=== PATIENT | female | born 1945 | race African-American/Black ===

== ENCOUNTER 2020-02-27 01:28 | Emergency (ER) | payer OTHER, MEDICAID ==
[~2020-02-27] VITALS: Ht 165.1 cm; Wt 63.0 kg
[~2020-02-27 01:28] MED LIST: ALPR0.5T PO; AMLO10TA80 PO; AMLODIPINE; ASPI-1160 PO; Benazepril; PROMETHAZINE
[2020-02-27 03:27] LABS: EOSINOPHILS % 0.4 % (0.0-5.0); HEMATOCRIT. 39.5 % (36.0-48.0); HEMOGLOBIN. 13.4 g/dL (12.0-16.0); LYMPHOCYTES % 17.1 % (20.0-50.0); MEAN CORPUSCULAR HEMOGLOBIN 33.3 pg (28.0-32.0); MEAN CORPUSCULAR VOLUME 97.9 fL (81.0-99.0); MEAN PLATELET VOLUME 8.4 fl (7.4-10.4); MONOCYTES % 9.2 % (2.0-8.0); NEUTROPHILS % 72.3 % (40.0-76.0); PLATELET 254 x1000/uL (130-400); RED BLOOD CELL COUNT 4.03 mill/uL (4.2-5.4); RED CELL DISTRIBUTION WIDTH 13.2 % (11.6-14.6)
[2020-02-27 03:32] LABS: CHLORIDE 99 mEq/L (98-107)
[2020-02-27 03:35] LABS: ETHANOL BLOOD < 10 mg/dL
[2020-02-27 04:04] LABS: CLARITY URINE CLEAR (CLEAR); COLOR URINE YELLOW (YELLOW); KETONES URINE NEGATIVE (NEGATIVE); LEUKOCYTE ESTERASE URINE 1+ (NEGATIVE); NITRITE URINE NEGATIVE (NEGATIVE); OCCULT BLOOD URINE NEGATIVE (NEGATIVE); PH URINE 5.5 (4.5-8.0); PROTEIN URINE TRACE (NEGATIVE); SPECIFIC GRAVITY URINE 1.013 (1.005-1.030)
[2020-02-27] MEDS ORDERED: CEFTRIAXONE 1 G PREMIX 50 ML IV ONE (04:45)
[2020-02-27] MEDS ORDERED: ASPIRIN 81MG EC TABLET PO SCH (04:45)
[2020-02-27 07:43] VITALS: BP 157/69
== END 2020-02-27 08:00 | disposition short-term general hospital (02) ==
LOC: ER 01:28
DX: R79.89 Other specified abnormal findings of blood chemistry (principal); R53.1 Weakness; N39.0 Urinary tract infection, site not specified; R03.0 Elevated blood-pressure reading, without diagnosis of hypertension; J44.9 Chronic obstructive pulmonary disease, unspecified; Z99.81 Dependence on supplemental oxygen
CPT/HCPCS: 36415; 70450; 71045; 80053; 80320; 81003; 83605; 83690; 83880; 84484; 85025; 93005; 96374; 99285; J0696; G0480

== ENCOUNTER 2020-11-16 16:50 | Emergency (ER) | payer OTHER ==
[~2020-11-16] VITALS: Ht 167.6 cm; Wt 55.0 kg
[2020-11-16] MEDS ORDERED: KETOROLAC 60MG/2ML VIAL IM ONE (19:00)
[2020-11-16] MEDS ORDERED: HYDROCODONE/ACETAMINOPHEN 5/325MG TABLET PO ONE (19:00)
[2020-11-16] MEDS ORDERED: HYDROCODONE/ACETAMINOPHEN 10/325MG TABLET PO ONE (19:00)
[2020-11-16] MEDS ORDERED: IBUP-2029 MT (20:46)
[2020-11-16] MEDS ORDERED: ACET650T37 MT (20:47)
[2020-11-16] MEDS ORDERED: CYCL5TAB MT (20:56)
[2020-11-16 21:15] VITALS: BP 157/91
== END 2020-11-16 21:25 | disposition home or self-care (01) ==
LOC: ER 18:15
DX: S32.019A Unspecified fracture of first lumbar vertebra, initial encounter for closed fracture (principal); I10 Essential (primary) hypertension; M19.90 Unspecified osteoarthritis, unspecified site; J44.9 Chronic obstructive pulmonary disease, unspecified; Z86.73 Personal history of transient ischemic attack (TIA), and cerebral infarction without residual deficits; Z79.82 Long term (current) use of aspirin; W01.0XXA Fall on same level from slipping, tripping and stumbling without subsequent striking against object, initial encounter; Y93.89 Activity, other specified; Y92.018 Other place in single-family (private) house as the place of occurrence of the external cause
CPT/HCPCS: 74176; 96372; 99284; J1885

== ENCOUNTER 2020-12-31 09:44 | Emergency (ER) | payer OTHER, MEDICAID ==
[~2020-12-31] VITALS: Ht 160 cm; Wt 65.0 kg
[~2020-12-31 09:44] MED LIST changes: +ACET650T37 MT; +CYCL5TAB MT; +IBUP-2029 MT
[2020-12-31] MEDS ORDERED: ONDANSETRON HCL 4MG/2ML INJ IV STA (10:15)
[2020-12-31] MEDS ORDERED: DILTIAZEM HCL 5MG/ML 5ML VIAL IV ONE ×2 (10:15→14:30)
[2020-12-31] MEDS ORDERED: MORPHINE SULFATE 4 MG/ML CPJ (NOT FOR IM USE) IV STA (10:15)
[2020-12-31 10:40] LABS: HEMATOCRIT. 35.9 % (36.0-48.0); HEMOGLOBIN. 12.5 g/dL (12.0-16.0); MEAN CORPUSCULAR VOLUME 98.2 fL (81.0-99.0); MEAN PLATELET VOLUME 8.4 fl (7.4-10.4); PLATELET 206 x1000/uL (130-400); RED BLOOD CELL COUNT 3.66 mill/uL (4.2-5.4); RED CELL DISTRIBUTION WIDTH 13.5 % (11.6-14.6)
[2020-12-31 10:49] LABS: CHLORIDE 105 mEq/L (98-107)
[2020-12-31 10:51] LABS: PROTHROMBIN TIME 10.6 sec (9.6-11.0)
[2020-12-31 11:04] LABS: PLATELET ESTIMATE NORMAL
[2020-12-31] MEDS ORDERED: HYDROCODONE/ACETAMINOPHEN 5/325MG TABLET PO ONE (13:00)
[2020-12-31] MEDS ORDERED: CEFTRIAXONE 1 G PREMIX 50 ML IV ONE (13:00)
[2020-12-31 16:10] VITALS: BP 116/59
== END 2020-12-31 16:40 | disposition short-term general hospital (02) ==
LOC: ER 09:44 → EDBEDREQ 10:40 → ER 16:40 → CANBEDREQ 17:11
DX: R55 Syncope and collapse (principal); M48.56XA Collapsed vertebra, not elsewhere classified, lumbar region, initial encounter for fracture; I48.91 Unspecified atrial fibrillation; I11.0 Hypertensive heart disease with heart failure; I50.9 Heart failure, unspecified; J98.11 Atelectasis; D72.825 Bandemia; R73.9 Hyperglycemia, unspecified; R00.0 Tachycardia, unspecified; E87.2 Acidosis; J44.9 Chronic obstructive pulmonary disease, unspecified; M19.90 Unspecified osteoarthritis, unspecified site; F03.90 Unspecified dementia, unspecified severity, without behavioral disturbance, psychotic disturbance, mood disturbance, and anxiety; Z91.81 History of falling; Z86.73 Personal history of transient ischemic attack (TIA), and cerebral infarction without residual deficits; Z79.01 Long term (current) use of anticoagulants
CPT/HCPCS: 36415; 70450; 71045; 71250; 80053; 83605; 83690; 83880; 84484; 85025; 85610; 87040; 93005; 96365; 96375; 96376; 99285; J0696; J2270; J2405; J3490

== ENCOUNTER 2021-01-04 19:54 | Emergency (ER) | payer OTHER, MEDICAID ==
[~2021-01-04] VITALS: Ht 167.6 cm; Wt 61.0 kg
[2021-01-04 21:22] LABS: HEMATOCRIT. 29.7 % (36.0-48.0); HEMOGLOBIN. 10.6 g/dL (12.0-16.0); MEAN CORPUSCULAR HEMOGLOBIN 34.3 pg (28.0-32.0); MEAN CORPUSCULAR VOLUME 95.8 fL (81.0-99.0); MEAN PLATELET VOLUME 8.4 fl (7.4-10.4); PLATELET 228 x1000/uL (130-400); RED BLOOD CELL COUNT 3.11 mill/uL (4.2-5.4); RED CELL DISTRIBUTION WIDTH 13.5 % (11.6-14.6)
[2021-01-04 21:25] LABS: CHLORIDE 104 mEq/L (98-107)
[2021-01-04 21:50] LABS: PLATELET ESTIMATE NORMAL
[2021-01-04 22:02] LABS: BG BASE EXCESS 2.8 mmol/L (-2.0-2.0); BG CARBOXYHEMOGLOBIN 0.2 % (0.5-1.5); BG DEOXYHEMOGLOBIN 3.3 % (0.0-5.0); BG FRACTION INSPIRED OXYGEN 28; BG HCO3 ACT 25.9 mmol/L (22.0-26.0); BG METHEMOGLOBIN 0.3 % (0.0-1.5); BG OXYGEN SATURATION 96.7 % (92.0-98.5); BG OXYHEMOGLOBIN 96.2 % (94.0-97.0); BG PCO2 34.5 mmHg (35.0-45.0); BG PH 7.494 (7.350-7.450); BG PO2 88.2 mmHg (75.0-100.0); BG SAMPLE SITE RIGHT RADIAL; BG VENT MODE NASAL CANNULA
[2021-01-04 22:42] VITALS: BP 158/79
== END 2021-01-04 22:46 | disposition home or self-care (01) ==
LOC: ER 19:54
DX: R06.03 Acute respiratory distress (principal); J44.9 Chronic obstructive pulmonary disease, unspecified; I11.0 Hypertensive heart disease with heart failure; I50.9 Heart failure, unspecified; Z99.81 Dependence on supplemental oxygen; R55 Syncope and collapse; Z86.73 Personal history of transient ischemic attack (TIA), and cerebral infarction without residual deficits
CPT/HCPCS: 36415; 36600; 71045; 80053; 82375; 82805; 83880; 84484; 85025; 93005; 99285

== ENCOUNTER 2022-05-17 20:31 | Inpatient (IN) | payer OTHER, MEDICAID ==
[~2022-05-17] VITALS: Ht 165.1 cm; Wt 49.4 kg
[~2022-05-17 20:31] MED LIST changes: +ACET-3163 MT; -ACET650T37 MT
[2022-05-17 22:50] LABS: HEMATOCRIT. 34.9 % (36.0-48.0); HEMOGLOBIN. 11.5 g/dL (12.0-16.0); MEAN CORPUSCULAR HEMOGLOBIN 32.2 pg (28.0-32.0); MEAN CORPUSCULAR VOLUME 97.6 fL (81.0-99.0); MEAN PLATELET VOLUME 8.3 fl (7.4-10.4); PLATELET 245 x1000/uL (130-400); RED BLOOD CELL COUNT 3.58 mill/uL (4.2-5.4)
[2022-05-17 23:00] LABS: CHLORIDE 104 mEq/L (98-107)
[2022-05-17 23:14] LABS: ETHANOL BLOOD < 10 mg/dL
[2022-05-17 23:15] LABS: PARTIAL THROMBOPLASTIN TIME 27.1 sec (23.4-31.0); PROTHROMBIN TIME 10.9 sec (9.6-11.0)
[2022-05-17 23:19] LABS: PLATELET ESTIMATE NORMAL
[2022-05-18] MEDS ORDERED: AZITHROMYCIN 500MG/250ML 250 ML IV NR (00:45)
[2022-05-18] MEDS ORDERED: SODIUM CHLORIDE 0.9% 1000ML BAG (SEPSIS BOLUS) IV ONE (00:45)
[2022-05-18] MEDS ORDERED: CEFTRIAXONE 1 G PREMIX 50 ML IV NR (00:45)
[2022-05-18] MEDS ORDERED: ASPIRIN 325MG EC TABLET PO ONE (02:15)
[2022-05-18] MEDS ORDERED: KETOROLAC 15MG/ML VIAL IV ONE (02:30)
[2022-05-18] MEDS ORDERED: IPRATROPIUM/ALBUTEROL 0.5-3(2.5)MG/3ML NEB HHN PRN (08:45)
[2022-05-18] MEDS ORDERED: CEFTRIAXONE 1 G PREMIX 50 ML IV SCH (08:45)
[2022-05-18] MEDS ORDERED: ACETAMINOPHEN 325MG TABLET PO PRN (08:45)
[2022-05-18] MEDS ORDERED: ONDANSETRON HCL 4MG/2ML INJ IV PRN (08:45)
[2022-05-18] MEDS ORDERED: DEXTROSE 50% WATER 50ML SYRINGE IV PRN (09:00)
[2022-05-18 09:15] VITALS: BP 140/69
[2022-05-18 12:00] VITALS: BP 114/56
[2022-05-18] MEDS: BLOOD SUGAR DIAGNOSTIC STRIP TEST SCH ×3 (12:10→20:50)
[2022-05-18] MEDS: INSULIN LISPRO 100 UNITS/ML SUBCUT SCH ×3 (13:41→20:50)
[2022-05-18 16:00] VITALS: BP 119/61
[2022-05-18] MEDS ORDERED: DONE-53 PO (16:37)
[2022-05-18] MEDS ORDERED: MIRT-90 PO (16:37)
[2022-05-18] MEDS ORDERED: MELA10TA2 MT (16:37)
[2022-05-18] MEDS ORDERED: MEGE400O5 MT (16:37)
[2022-05-18] MEDS ORDERED: ALBU90AE INH (16:37)
[2022-05-18] MEDS ORDERED: T3 PO (16:37)
[2022-05-18] MEDS ORDERED: ATEN-42 MT (16:37)
[2022-05-18] MEDS ORDERED: SERT20OR6 PO (16:37)
[2022-05-18 20:00] VITALS: BP 153/60
[2022-05-18] MEDS: MELATONIN 3MG TABLET PO SCH (20:50)
[2022-05-18] MEDS: DOCUSATE SODIUM 100MG CAPSULE PO SCH (20:50)
[2022-05-18] MEDS: GUAIFENESIN 600MG ER TABLET PO SCH (20:50)
[2022-05-18] MEDS: CEFTRIAXONE 1,000 MG in DEXTROSE 5% WATER 50 ML IV SCH (22:23)
[2022-05-19] VITALS: BP 119/92
[2022-05-19 04:00] VITALS: BP 156/63
[2022-05-19] MEDS: BLOOD SUGAR DIAGNOSTIC STRIP TEST SCH ×4 (06:37→21:00)
[2022-05-19] MEDS: INSULIN LISPRO 100 UNITS/ML SUBCUT SCH ×4 (06:37→21:00)
[2022-05-19] MEDS: IPRATROPIUM/ALBUTEROL 0.5-3(2.5)MG/3ML NEB HHN SCH (07:36)
[2022-05-19 08:00] VITALS: BP 133/44
[2022-05-19] MEDS: AZITHROMYCIN 500 MG TABLET PO SCH (08:31)
[2022-05-19] MEDS: GUAIFENESIN 600MG ER TABLET PO SCH ×2 (08:31→21:46)
[2022-05-19] MEDS: DOCUSATE SODIUM 100MG CAPSULE PO SCH ×2 (08:31→16:40)
[2022-05-19 12:00] VITALS: BP 114/74
[2022-05-19 16:00] VITALS: BP 132/55
[2022-05-19 16:39] LABS: BASOPHILS % 0.5 % (0.0-2.0); EOSINOPHILS % 0.6 % (0.0-5.0); HEMATOCRIT. 31.5 % (36.0-48.0); HEMOGLOBIN. 10.4 g/dL (12.0-16.0); MEAN CORPUSCULAR HEMOGLOBIN 32.4 pg (28.0-32.0); MEAN CORPUSCULAR VOLUME 98.3 fL (81.0-99.0); MONOCYTES % 10.2 % (2.0-8.0); NEUTROPHILS % 78.7 % (40.0-76.0); PLATELET 239 x1000/uL (130-400); RED BLOOD CELL COUNT 3.21 mill/uL (4.2-5.4)
[2022-05-19 16:47] LABS: CHLORIDE 106 mEq/L (98-107)
[2022-05-19 20:00] VITALS: BP 146/67
[2022-05-19] MEDS: CEFTRIAXONE 1,000 MG in DEXTROSE 5% WATER 50 ML IV SCH (21:44)
[2022-05-19] MEDS: MELATONIN 3MG TABLET PO SCH (21:46)
[2022-05-20] VITALS: BP 122/57
[2022-05-20 04:00] VITALS: BP 135/52
[2022-05-20] MEDS: BLOOD SUGAR DIAGNOSTIC STRIP TEST SCH ×4 (07:20→20:42)
[2022-05-20 07:56] VITALS: BP 153/51
[2022-05-20] MEDS: GUAIFENESIN 600MG ER TABLET PO SCH ×2 (08:53→20:42)
[2022-05-20] MEDS: DOCUSATE SODIUM 100MG CAPSULE PO SCH ×2 (08:53→16:38)
[2022-05-20] MEDS: AZITHROMYCIN 500 MG TABLET PO SCH (08:53)
[2022-05-20] MEDS: INSULIN LISPRO 100 UNITS/ML SUBCUT SCH ×4 (08:54→20:58)
[2022-05-20 12:01] VITALS: BP 130/76
[2022-05-20] MEDS ORDERED: LACTULOSE 20G/30ML UDC PO NR (14:00)
[2022-05-20] MEDS: IPRATROPIUM/ALBUTEROL 0.5-3(2.5)MG/3ML NEB HHN SCH ×2 (14:39→20:09)
[2022-05-20 15:42] VITALS: BP 142/56
[2022-05-20 16:44] LABS: EOSINOPHILS % 0.7 % (0.0-5.0); HEMATOCRIT. 32.9 % (36.0-48.0); HEMOGLOBIN. 10.7 g/dL (12.0-16.0); LYMPHOCYTES % 17.8 % (20.0-50.0); MEAN CORPUSCULAR HEMOGLOBIN 32.3 pg (28.0-32.0); MEAN CORPUSCULAR VOLUME 99.2 fL (81.0-99.0); MEAN PLATELET VOLUME 9.1 fl (7.4-10.4); MONOCYTES % 10.2 % (2.0-8.0); NEUTROPHILS % 70.3 % (40.0-76.0); PLATELET 275 x1000/uL (130-400); RED BLOOD CELL COUNT 3.32 mill/uL (4.2-5.4); RED CELL DISTRIBUTION WIDTH 14.4 % (11.6-14.6)
[2022-05-20 16:51] LABS: CHLORIDE 105 mEq/L (98-107)
[2022-05-20] MEDS ORDERED: POTASSIUM CHLORIDE 20MEQ TABLET SR PO NR (17:30)
[2022-05-20 20:00] VITALS: BP 154/83
[2022-05-20] MEDS: MELATONIN 3MG TABLET PO SCH (20:42)
[2022-05-20] MEDS: CEFTRIAXONE 1,000 MG in DEXTROSE 5% WATER 50 ML IV SCH (20:42)
[2022-05-21] VITALS: BP 147/61
[2022-05-21] MEDS: IPRATROPIUM/ALBUTEROL 0.5-3(2.5)MG/3ML NEB HHN SCH ×4 (02:09→20:48)
[2022-05-21 04:00] VITALS: BP 135/61
[2022-05-21] MEDS: BLOOD SUGAR DIAGNOSTIC STRIP TEST SCH ×4 (07:20→21:57)
[2022-05-21 08:00] VITALS: BP 149/58
[2022-05-21] MEDS: INSULIN LISPRO 100 UNITS/ML SUBCUT SCH ×4 (08:30→21:00)
[2022-05-21] MEDS: AZITHROMYCIN 500 MG TABLET PO SCH (11:50)
[2022-05-21] MEDS: DOCUSATE SODIUM 100MG CAPSULE PO SCH ×2 (11:53→17:34)
[2022-05-21] MEDS: GUAIFENESIN 600MG ER TABLET PO SCH ×2 (11:54→21:20)
[2022-05-21 12:00] VITALS: BP 141/50
[2022-05-21 16:00] VITALS: BP 123/77
[2022-05-21] MEDS ORDERED: DILTIAZEM HCL 5MG/ML 5ML VIAL IV NR (17:00)
[2022-05-21] MEDS: DILTIAZEM HCL 30MG TABLET PO SCH ×2 (17:57→18:10)
[2022-05-21] MEDS: METOPROLOL TARTRATE 50MG TABLET PO SCH (21:00)
[2022-05-21 21:15] VITALS: BP 100/115
[2022-05-21] MEDS: CEFTRIAXONE 1,000 MG in DEXTROSE 5% WATER 50 ML IV SCH (21:20)
[2022-05-21] MEDS: MELATONIN 3MG TABLET PO SCH (21:57)
[2022-05-22] VITALS: BP 138/58
[2022-05-22] MEDS: IPRATROPIUM/ALBUTEROL 0.5-3(2.5)MG/3ML NEB HHN SCH ×2 (02:43→09:10)
[2022-05-22 04:02] VITALS: BP 136/70
[2022-05-22] MEDS: BLOOD SUGAR DIAGNOSTIC STRIP TEST SCH ×2 (05:58→12:20)
[2022-05-22] MEDS: INSULIN LISPRO 100 UNITS/ML SUBCUT SCH ×2 (05:59→14:20)
[2022-05-22 08:00] VITALS: BP 126/70
[2022-05-22] MEDS: GUAIFENESIN 600MG ER TABLET PO SCH (09:18)
[2022-05-22] MEDS: AZITHROMYCIN 500 MG TABLET PO SCH (09:18)
[2022-05-22] MEDS: DOCUSATE SODIUM 100MG CAPSULE PO SCH (09:18)
[2022-05-22] MEDS: METOPROLOL TARTRATE 50MG TABLET PO SCH (09:19)
[2022-05-22] MEDS ORDERED: DILT120C88 MT (11:48)
[2022-05-22] MEDS ORDERED: AZIT250T12 MT (11:48)
[2022-05-22] MEDS ORDERED: CEPH500C2 MT (11:48)
[2022-05-22 12:00] VITALS: BP 131/71
[2022-05-22] MEDS ORDERED: DILTIAZEM HCL 30MG TABLET PO SCH (12:00)
[2022-05-22 15:48] VITALS: BP 121/50
[2022-05-22 16:00] VITALS: BP 121/50
== END 2022-05-22 17:59 | disposition home or self-care (01) | DRG 871 ==
LOC: ER 20:31 → MICUSO 05-18 02:07 → EDBEDREQ 05-18 02:14 → 8WST 05-18 09:13 → 6WST 05-19 20:09
PROVIDERS: ADMIT Internal Medicine; ATTEND Internal Medicine
DX: A41.9 Sepsis, unspecified organism (principal); J18.9 Pneumonia, unspecified organism; J96.21 Acute and chronic respiratory failure with hypoxia; J44.0 Chronic obstructive pulmonary disease with (acute) lower respiratory infection; J44.1 Chronic obstructive pulmonary disease with (acute) exacerbation; I47.1 Supraventricular tachycardia; I48.0 Paroxysmal atrial fibrillation; D64.9 Anemia, unspecified; M19.90 Unspecified osteoarthritis, unspecified site; I10 Essential (primary) hypertension; Z20.822 Contact with and (suspected) exposure to COVID-19; I69.320 Aphasia following cerebral infarction; I69.328 Other speech and language deficits following cerebral infarction; Z88.1 Allergy status to other antibiotic agents; Z88.8 Allergy status to other drugs, medicaments and biological substances; Z99.81 Dependence on supplemental oxygen; Z87.891 Personal history of nicotine dependence
CPT/HCPCS: 36415; 71045; 80048; 80053; 80320; 82962; 83036; 83605; 83880; 84145; 84484; 85025; 87426; 93005; 93306; 99291; C1893; C9803; J0456; J0696; J1815; J1885; J7060; G0480

== ENCOUNTER 2023-07-24 17:30 | Emergency (ER) | payer MEDICAID, MEDICARE, OTHER ==
[~2023-07-24] VITALS: Ht 162.6 cm; Wt 77.0 kg
[~2023-07-24 17:30] MED LIST changes: +ALBU90AE INH; -AMLO10TA80 PO; -AMLODIPINE; +AZIT250T12 MT; -Benazepril; +CEPH500C2 MT; +DILT120C88 MT; +DONE-53 PO; +MEGE400O5 MT; +MELA10TA2 MT; +MIRT-90 PO; -PROMETHAZINE; +SERT20OR6 PO; +T3 PO
[2023-07-24 18:03] VITALS: O2SAT 98
[2023-07-24 19:10] VITALS: RESP 25
[2023-07-24] MEDS: IPRATROPIUM BROMIDE (0.02%) 0.5MG/2.5ML NEB HHN STA (19:51)
[2023-07-24] MEDS: ALBUTEROL (0.083%) 2.5MG/3ML NEB HHN SCH (19:51)
[2023-07-24] MEDS: SODIUM CHLORIDE 0.9% 1000ML BAG (SEPSIS BOLUS) IV ONE (20:19)
[2023-07-24 20:30] VITALS: RESP 19
[2023-07-24] MEDS: METHYLPREDNISOLONE SOD SUCC 125MG/2ML (ACT-O-VIAL) IV STA (20:30)
[2023-07-24 21:23] LABS: BASOPHILS % 0.3 % (0.0-2.0); DIFFERENTIAL COMMENT 0; HEMATOCRIT. 35.6 % (36.0-48.0); LYMPHOCYTES % 11.2 % (20.0-50.0); MEAN CORPUSCULAR HEMOGLOBIN 31.7 pg (28.0-32.0); MEAN CORPUSCULAR HGB CONC 30.8 g/dL (31.0-37.0); MEAN CORPUSCULAR VOLUME 102.8 fL (81.0-99.0); MONOCYTES % 11.2 % (2.0-8.0); NEUTROPHILS % 77.3 % (40.0-76.0); PLATELET 167 x1000/uL (130-400); RED BLOOD CELL COUNT 3.46 mill/uL (4.2-5.4); RED CELL DISTRIBUTION WIDTH 13.7 % (11.6-14.6)
[2023-07-24] MEDS: MAGNESIUM 2 G PREMIX 50 ML IV ONE (21:35)
[2023-07-24] MEDS ORDERED: GUAIFENESIN 200MG/10ML SUGAR FREE UDC PO PRN (21:45)
[2023-07-24] MEDS ORDERED: VANCOMYCIN 1G PREMIX 200 ML IV ONE (21:45)
[2023-07-24] MEDS ORDERED: PIPERACILLIN/TAZO 3.375G/50ML 50 ML IV ONE (21:45)
[2023-07-24] MEDS ORDERED: VANCOMYCIN 1G PREMIX 200 ML IV SCH (21:45)
[2023-07-24] MEDS ORDERED: ONDANSETRON HCL 4MG/2ML INJ IV PRN (21:45)
[2023-07-24] MEDS ORDERED: DEXTROSE 50% WATER 50ML SYRINGE IV PRN (21:45)
[2023-07-24] MEDS ORDERED: IPRATROPIUM/ALBUTEROL 0.5-3(2.5)MG/3ML NEB HHN PRN (21:45)
[2023-07-24] MEDS ORDERED: ACETAMINOPHEN 325MG TABLET PO PRN ×2 (21:45)
[2023-07-24 21:46] LABS: LACTIC ACID 5.1 mmol/L (0.4-2.0)
[2023-07-24 21:48] LABS: ALANINE AMINOTRANSFERASE 43 IU/L (10-49); ASPARTATE AMINOTRANSFERASE 46 IU/L (<34); BILIRUBIN TOTAL 0.7 mg/dL (0.1-1.0); CALCIUM 7.7 mg/dL (8.7-10.4); CARBON DIOXIDE 22 mEq/L (21-32); CHLORIDE 105 mEq/L (98-107); CREATININE 0.6 mg/dL (0.6-1.0); GLUCOSE 88 mg/dL (70-105); POTASSIUM 3.5 mEq/L (3.5-5.1); SODIUM 142 mEq/L (136-145); TROPONIN I HIGH SENSITIVITY 25 ng/L (3.0-34); UREA NITROGEN BLOOD 13 mg/dL (9-23)
[2023-07-24 21:50] LABS: PROTEIN TOTAL 5.5 g/dL (6.0-8.3)
[2023-07-24] MEDS: DEXT 5%/0.9% NACL 1,000 ML IV SCH (22:00)
[2023-07-24 22:51] LABS: CLARITY URINE CLEAR (CLEAR); COLOR URINE YELLOW (YELLOW); GLUCOSE URINE NEGATIVE (NEGATIVE); KETONES URINE NEGATIVE (NEGATIVE); LEUKOCYTE ESTERASE URINE NEGATIVE (NEGATIVE); NITRITE URINE NEGATIVE (NEGATIVE); OCCULT BLOOD URINE 1+ (NEGATIVE); PH URINE 6.5 (4.5-8.0); PROTEIN URINE 3+ (NEGATIVE); SPECIFIC GRAVITY URINE 1.019 (1.005-1.030)
[2023-07-24 23:02] LABS: *AMPHETAMINES SCREEN URINE NEGATIVE (NEGATIVE); *BARBITURATES SCREEN URINE NEGATIVE (NEGATIVE); *BENZODIAZEPINES SCREEN URINE NEGATIVE (NEGATIVE); *COCAINE SCREEN URINE NEGATIVE (NEGATIVE); CANNABINOID URINE SCREEN PRESUMPTIVE POSITIVE (NEGATIVE); ECSTASY MDMA SCREEN URINE NEGATIVE (NEGATIVE); METHADONE URINE SCREEN Neg (NEGATIVE); OPIATES URINE SCREEN NEGATIVE (NEGATIVE); PHENCYCLIDINE URINE SCREEN NEGATIVE (NEGATIVE)
[2023-07-24 23:12] LABS: SQUAMOUS EPITHELIAL CELL URINE 1+ /lpf (RARE/1+)
[2023-07-24 23:13] LABS: WBC URINE 0-2 /hpf (0-2)
[2023-07-24 23:14] LABS: BACTERIA URINE 1+
[2023-07-25] MEDS: METHYLPREDNISOLONE SOD SUCC 40MG/ML (ACT-O-VIAL) IV SCH (00:12)
[2023-07-25] MEDS: PIPERACILLIN/TAZO 3.375G/50ML 50 ML IV NR (00:12)
[2023-07-25 00:18] LABS: D-DIMER 3.11 mg/L FEU (<0.50); INR 1.2; PROTHROMBIN TIME 12.4 sec (9.6-11.0)
[2023-07-25 00:26] LABS: CREATINE KINASE MB FRACTION 1.2 ng/mL (0.5-3.6)
[2023-07-25 00:37] LABS: IRON 10 ug/dL (50-170); PHOSPHORUS 4.5 mg/dL (2.5-4.9); TOTAL IRON BINDING CAPACITY 374 ug/dl (250-425)
[2023-07-25] MEDS: VANCOMYCIN 1G PREMIX 200 ML IV NR (00:59)
[2023-07-25 02:00] VITALS: RESP 21
[2023-07-25 02:15] LABS: BG BASE EXCESS -5.3 mmol/L (-2.0-2.0); BG CARBOXYHEMOGLOBIN 0.3 % (0.5-1.5); BG DEOXYHEMOGLOBIN 3.6 % (0.0-5.0); BG FRACTION INSPIRED OXYGEN 50; BG HCO3 ACT 22.1 mmol/L (22.0-26.0); BG METHEMOGLOBIN 0.3 % (0.0-1.5); BG OXYGEN SATURATION 96.4 % (92.0-98.5); BG OXYHEMOGLOBIN 95.8 % (94.0-97.0); BG PCO2 51.6 mmHg (35.0-45.0); BG PH 7.249 (7.350-7.450); BG PO2 100.3 mmHg (75.0-100.0); BG SAMPLE SITE RIGHT RADIAL; BG TOTAL HEMOGLOBIN 11.5 g/dL (12.0-18.0); BG VENT MODE MASK - BIPAP
[2023-07-25] MEDS ORDERED: PIPERACILLIN/TAZO 3.375G/50ML 50 ML IV SCH (06:00)
[2023-07-25 08:01] LABS: BG BASE EXCESS -9.5 mmol/L (-2.0-2.0); BG CARBOXYHEMOGLOBIN 0.3 % (0.5-1.5); BG DEOXYHEMOGLOBIN 8.5 % (0.0-5.0); BG FRACTION INSPIRED OXYGEN 75; BG HCO3 ACT 22.1 mmol/L (22.0-26.0); BG METHEMOGLOBIN 0.2 % (0.0-1.5); BG OXYGEN SATURATION 91.5 % (92.0-98.5); BG PCO2 79.1 mmHg (35.0-45.0); BG PH 7.064 (7.350-7.450); BG PO2 75.6 mmHg (75.0-100.0); BG SAMPLE SITE LEFT RADIAL; BG TOTAL HEMOGLOBIN 13.1 g/dL (12.0-18.0); BG TOTAL RESPIRATORY RATE 22 b/min; BG VENT MODE MASK - BIPAP
[2023-07-25 09:15] VITALS: RESP 22
[2023-07-25] MEDS: BUDESONIDE 0.5MG/2ML NEB HHN SCH (09:15)
[2023-07-25 10:00] VITALS: RESP 26
[2023-07-25 10:29] LABS: HEMATOCRIT. 37.9 % (36.0-48.0); HEMOGLOBIN. 11.9 g/dL (12.0-16.0); MEAN CORPUSCULAR HEMOGLOBIN 31.9 pg (28.0-32.0); MEAN CORPUSCULAR HGB CONC 31.4 g/dL (31.0-37.0); MEAN CORPUSCULAR VOLUME 101.6 fL (81.0-99.0); MEAN PLATELET VOLUME 9.9 fl (7.4-10.4); PLATELET 141 x1000/uL (130-400); RED BLOOD CELL COUNT 3.72 mill/uL (4.2-5.4); RED CELL DISTRIBUTION WIDTH 13.7 % (11.6-14.6)
[2023-07-25 10:30] VITALS: BP 130/82; PULSE 84; TEMP 97
[2023-07-25 10:43] LABS: DIFFERENTIAL COMMENT 1
[2023-07-25] MEDS ORDERED: VANCOMYCIN 750MG PREMIX 150 ML IV SCH (11:00)
[2023-07-25] MEDS: ACETYLCYSTEINE 100MG/ML 10% VIAL 4ML INH NR (11:44)
[2023-07-25] MEDS: DEXTROSE 50% WATER 50ML SYRINGE IV NR (11:45)
[2023-07-25 11:58] VITALS: RESP 28
[2023-07-25] MEDS: BLOOD SUGAR DIAGNOSTIC STRIP TEST SCH (11:58)
[2023-07-25] MEDS: INSULIN LISPRO 100 UNITS/ML SUBCUT SCH (11:58)
[2023-07-25] MEDS: FAMOTIDINE 20MG/2ML VIAL IV SCH (11:58)
[2023-07-25 12:44] LABS: PLATELET ESTIMATE NORMAL
[2023-07-25] MEDS ORDERED: VANCOMYCIN 1G PREMIX 200 ML IV SCH (21:00)
== END 2023-07-25 14:27 ==
LOC: ER 17:30 → EDBEDREQ 20:03 → EDBEDREQTM 20:40 → EDBEDREQSVC 07-25 12:30 → EDBEDREQ 07-25 12:31 → CANBEDREQ 07-25 12:59 → ER 07-25 14:27
DX: A41.9 Sepsis, unspecified organism (principal); R65.20 Severe sepsis without septic shock; J44.9 Chronic obstructive pulmonary disease, unspecified; I48.91 Unspecified atrial fibrillation; J45.909 Unspecified asthma, uncomplicated; Z20.822 Contact with and (suspected) exposure to COVID-19; Z88.0 Allergy status to penicillin; Z88.1 Allergy status to other antibiotic agents; Z88.8 Allergy status to other drugs, medicaments and biological substances; Z79.899 Other long term (current) drug therapy; Z86.73 Personal history of transient ischemic attack (TIA), and cerebral infarction without residual deficits; Z79.82 Long term (current) use of aspirin
CPT/HCPCS: 80053; 80305; 81003; 82550; 82553; 82962 ×2; 83036; 83880; 83540; 83550; 83605; 83690; 83735; 84100; 85025 ×2; 85379; 85610; 87040; 87086; 84484; 87077; 36415 ×2; 84145; 71045; 94640 ×2; 93005; 96367; 96361; 96375 ×2; 99291; 87804 ×2; 93970; 82805; 82375; 94660; 96365; 96366; 96376; 87426; 36600; J3475; J2930; J7608; J7030; J3490; J2920; J2543; J3370; J7626; 82607; 82728; 82746